=== PATIENT | female | born 1950 | race Caucasian/White ===

== ENCOUNTER 2022-07-19 02:24 | Inpatient (IN) | payer OTHER ==
[2022-07-19] MEDS ORDERED: ACETAMINOPHEN 1000 MG/100 ML BAG IVPB ONE (03:03)
[2022-07-19 03:17] LABS: BASO % 0.9 % (0-2.0); HEMATOCRIT 40.3 % (32.4-45.2); HEMOGLOBIN 13.6 GM/dL (10.7-15.3); LYMPH % 30.2 % (8-40); MCH 30.3 pg (25.7-33.7); MCHC 33.7 g/dl (32.0-36.0); MEAN CELL VOLUME 89.9 fl (80-96); MEAN PLT VOLUME 7.5 fl (7.5-11.1); MONO % 9.4 % (3.8-10.2); NEUT % 55.5 % (42.8-82.8); PLATELET COUNT 177 10^3/uL (134-434); RBC 4.48 M/mm3 (3.60-5.2); RDW 13.1 % (11.6-15.6); WHITE BLOOD COUNT 5.1 K/mm3 (4.0-10.0)
[2022-07-19 03:27] LABS: INR 0.96 (0.83-1.09)
[2022-07-19 03:29] LABS: ACTIVATED PTT 27.4 SECONDS (25.2-36.5)
[2022-07-19 03:44] LABS: CALCIUM 8.5 mg/dL (8.5-10.1)
[2022-07-19 03:45] LABS: BLOOD UREA NITROGEN 13.3 mg/dL (7-18)
[2022-07-19 03:49] LABS: BILIRUBIN,TOTAL 0.4 mg/dL (0.2-1); CREATININE 0.9 mg/dL (0.55-1.3)
[2022-07-19 03:52] LABS: N-TERMINAL BNP 254.5 pg/ml (5-125)
[2022-07-19 04:04] LABS: LACTIC ACID 2.1 mmol/L (0.4-2.0)
[2022-07-19] MEDS ORDERED: LACTATED RINGERS SOLUTION 1000 ML INFUS.BAG IV ONE (04:07)
[2022-07-19] MEDS ORDERED: TAMSULOSIN HCL 0.4 MG CAP PO ONE (06:07)
[2022-07-19] MEDS ORDERED: morphine CARPU-JECT 2 MG/1 ML DISP.SYRIN IVPUSH ONE (06:07)
[2022-07-19 06:09] LABS: EPI CELLS 6 /uL (0-25.1); HYALINE CASTS 0 /uL (0-3.1); URINE APPEARANCE CLEAR; URINE BACTERIA 56 /uL (0-1359); URINE BILIRUBIN NEGATIVE (NEGATIVE); URINE COLOR YELLOW; URINE GLUCOSE (UA) NEGATIVE (NEGATIVE); URINE KETONE NEGATIVE (NEGATIVE); URINE LEUK ESTERASE TRACE (NEGATIVE); URINE NITRITE NEGATIVE (NEGATIVE); URINE PROTEIN NEGATIVE (NEGATIVE); URINE RBC 1012 /uL (0-23.9); URINE UROBILINOGEN 0.2 mg/dL (0.2-1.0); URINE WBC 12 /uL (0-25.8)
[2022-07-19] MEDS ORDERED: CEFTRIAXONE 1 GM in DEXTROSE 5%-WATER - 100 ML IVPB ONE (06:12)
[2022-07-19] MEDS ORDERED: TAMSULOSIN HCL 0.4 MG CAP ONE (06:13)
[2022-07-19] MEDS ORDERED: CEFTRIAXONE 1 GM/50 ML BAG ONE (06:13)
[2022-07-19] MEDS ORDERED: metoPROLOL SUCCINATE 25 MG TAB.SR.24H (FP) PO ONE ×2 (08:23→08:42)
[2022-07-19] MEDS ORDERED: amLODIPine BESYLATE 10 MG TABLET (FP) ONE (08:42)
[2022-07-19] MEDS ORDERED: LOSARTAN POTASSIUM 50 MG TABLET ONE (08:42)
[2022-07-19] MEDS: LOSARTAN POTASSIUM 50 MG TABLET PO SCH (09:02)
[2022-07-19] MEDS: amLODIPine BESYLATE 10 MG TABLET (FP) PO SCH (09:02)
[2022-07-19] MEDS ORDERED: ACETAMINOPHEN 1000 MG/100 ML BAG IVPB PRN (11:32)
[2022-07-19] MEDS: SODIUM CHLORIDE 1,000 ML IV SCH (13:26)
[2022-07-19 16:20] VITALS: BMI 30.4
[2022-07-20] MEDS: SODIUM CHLORIDE 1,000 ML IV SCH (07:42)
[2022-07-20 08:14] LABS: HEMATOCRIT 39.4 % (32.4-45.2); MCH 29.5 pg (25.7-33.7); MEAN CELL VOLUME 89.2 fl (80-96); MEAN PLT VOLUME 7.8 fl (7.5-11.1); PLATELET COUNT 188 10^3/uL (134-434); RBC 4.41 M/mm3 (3.60-5.2); RDW 13.3 % (11.6-15.6); WHITE BLOOD COUNT 3.8 K/mm3 (4.0-10.0)
[2022-07-20 08:42] LABS: CALCIUM 8.4 mg/dL (8.5-10.1)
[2022-07-20 08:43] LABS: BLOOD UREA NITROGEN 8.9 mg/dL (7-18)
[2022-07-20 08:46] LABS: CREATININE 0.7 mg/dL (0.55-1.3)
[2022-07-20] MEDS: LOSARTAN POTASSIUM 50 MG TABLET PO SCH (09:36)
[2022-07-20] MEDS: amLODIPine BESYLATE 10 MG TABLET (FP) PO SCH (09:36)
[2022-07-20] MEDS: TAMSULOSIN HCL 0.4 MG CAP PO SCH (09:36)
[2022-07-20] MEDS: ENOXAPARIN NA (PORCINE) 40 MG/0.4 ML DISP.SYRIN SQ SCH (17:52)
[2022-07-21] MEDS: amLODIPine BESYLATE 10 MG TABLET (FP) PO SCH (09:25)
[2022-07-21] MEDS: TAMSULOSIN HCL 0.4 MG CAP PO SCH (09:25)
[2022-07-21] MEDS: LOSARTAN POTASSIUM 50 MG TABLET PO SCH (09:25)
[2022-07-21] MEDS ORDERED: CEFTRIAXONE 1 GM in DEXTROSE 5%-WATER - 50 ML IVPB SCH (10:00)
[2022-07-21] MEDS: ENOXAPARIN NA (PORCINE) 40 MG/0.4 ML DISP.SYRIN SQ SCH (11:02)
[2022-07-21] MEDS ORDERED: ONDANSETRON 4 MG/2 ML VIAL IVPUSH PRN ×2 (11:36→15:47)
[2022-07-21] MEDS ORDERED: hydrALAZINE HCL 20 MG/ML VIAL IVPUSH ONE (11:42)
[2022-07-21] MEDS ORDERED: SODIUM CHLORIDE 1,000 ML IV SCH ×2 (11:45→15:47)
[2022-07-21] MEDS ORDERED: MIDAZOLAM HCL 2 MG/2 ML SINGLE DOSE VIAL ONE (14:26)
[2022-07-21] MEDS ORDERED: GENTAMICIN SO4 80 MG/2 ML VIAL ONE (14:47)
[2022-07-21] MEDS ORDERED: DEXAMETHASONE SOD PHOSPHATE 4 MG/1 ML VIAL ONE (15:16)
[2022-07-21] MEDS ORDERED: PROMETHAZINE HCL 25 MG/1 ML VIAL IVPUSH PRN (15:33)
[2022-07-21] MEDS ORDERED: LABETALOL HCL 5 MG/1 ML (100MG/20 ML VIAL) IVPUSH ONE (15:34)
[2022-07-21] MEDS ORDERED: KETOROLAC TROMETHAMINE 30 MG/1 ML VIAL ONE (15:38)
[2022-07-21] MEDS ORDERED: ACETAMINOPHEN INJECTION 100 ML IVPB ONE (15:39)
[2022-07-21] MEDS ORDERED: KETOROLAC TROMETHAMINE 30 MG/1 ML VIAL IVPUSH ONE (15:39)
[2022-07-21] MEDS ORDERED: ACETAMINOPHEN 1000 MG/100 ML BAG IVPB ONE (15:40)
[2022-07-21] MEDS ORDERED: LACTATED RINGERS SOLUTION 1,000 ML IV SCH (15:45)
[2022-07-21 21:05] VITALS: RESP 18
[2022-07-22 07:31] LABS: BASO % 0.2 % (0-2.0); HEMATOCRIT 38.4 % (32.4-45.2); HEMOGLOBIN 12.8 GM/dL (10.7-15.3); LYMPH % 12.3 % (8-40); MCH 29.6 pg (25.7-33.7); MCHC 33.3 g/dl (32.0-36.0); MEAN CELL VOLUME 88.8 fl (80-96); MEAN PLT VOLUME 7.8 fl (7.5-11.1); MONO % 5.2 % (3.8-10.2); NEUT % 82.3 % (42.8-82.8); PLATELET COUNT 172 10^3/uL (134-434); RBC 4.32 M/mm3 (3.60-5.2); RDW 13.2 % (11.6-15.6); WHITE BLOOD COUNT 5.8 K/mm3 (4.0-10.0)
[2022-07-22 07:58] LABS: ALBUMIN 3.4 g/dl (3.4-5.0); CREATININE 0.7 mg/dL (0.55-1.3)
[2022-07-22 07:59] LABS: BLOOD UREA NITROGEN 16.8 mg/dL (7-18); CALCIUM 8.3 mg/dL (8.5-10.1)
[2022-07-22 08:00] LABS: BILIRUBIN,TOTAL 0.6 mg/dL (0.2-1); TOT PROT 6.3 g/dl (6.4-8.2)
[2022-07-22 08:29] VITALS: BP 142/72; PULSE 82; TEMP 98.6
[2022-07-22] MEDS ORDERED: TAMSULOSIN HCL 0.4 MG CAP PO SCH (08:30)
[2022-07-22] MEDS ORDERED: CEFTRIAXONE 1 GM in DEXTROSE 5%-WATER - 50 ML IVPB SCH (10:00)
[2022-07-22] MEDS ORDERED: amLODIPine BESYLATE 10 MG TABLET (FP) PO SCH (10:00)
[2022-07-22] MEDS ORDERED: ENOXAPARIN NA (PORCINE) 40 MG/0.4 ML DISP.SYRIN SQ SCH (10:00)
[2022-07-22] MEDS ORDERED: LOSARTAN POTASSIUM 50 MG TABLET PO SCH (10:00)
== END 2022-07-22 14:44 | disposition home or self-care (01) | DRG 660 ==
LOC: JER 02:24 → JERBED 04:43 → J4W 15:32
PROVIDERS: ADMIT Internal Medicine; ATTEND Nurse Practitioner Acute Care
PROC: 0T768DZ Dilation of Right Ureter with Intraluminal Device, Via Natural or Artificial Opening Endoscopic (ICD-10-PCS; principal; 2022-07-21 14:00)
PROC: BT1DZZZ Fluoroscopy of Right Kidney, Ureter and Bladder (ICD-10-PCS; 2022-07-21 14:00)
PROC: 0TC68ZZ Extirpation of Matter from Right Ureter, Via Natural or Artificial Opening Endoscopic (ICD-10-PCS; 2022-07-21 14:00)
DX: N13.6 Pyonephrosis (principal); E87.2 Acidosis; I10 Essential (primary) hypertension; M32.9 Systemic lupus erythematosus, unspecified; R31.9 Hematuria, unspecified
CPT/HCPCS: 0241U-QW; 36415; 71045-TC-FY; 74177-TC; 76000-TC-FY; 80048; 80053; 81003; 82360; 83605; 83690; 83735; 83880; 84484; 85025; 85027; 85610; 85730; 86850; 86900; 86901; 87077; 87086; 88108; 88300-TC; 93005; 93010; 94010; 94760; 99285-25; C2617; Q9967